=== PATIENT | female | born 1980 | race Caucasian/White ===

== ENCOUNTER 2023-10-18 12:56 | Emergency (ER) | payer BC ==
[~2023-10-18] VITALS: Ht 157.5 cm; Wt 73.0 kg
[2023-10-18 14:11] VITALS: BP 120/73; TEMP 98.4; O2SAT 98
== END 2023-10-18 14:48 | disposition home or self-care (01) ==
LOC: ER 12:56
DX: S59.801A Other specified injuries of right elbow, initial encounter (principal); W18.30XA Fall on same level, unspecified, initial encounter; Y93.89 Activity, other specified; Y92.89 Other specified places as the place of occurrence of the external cause; Y99.8 Other external cause status
CPT/HCPCS: 73080-TC; 73090-TC